=== PATIENT | female | born 1970 | race Caucasian/White ===

== ENCOUNTER 2017-12-18 05:56 | Day surgery (SDC) | END 2017-12-18 12:00 | disposition home or self-care (01) ==

== ENCOUNTER 2019-03-04 09:26 | Day surgery (SDC) | payer OTHER ==
[2019-03-03 18:33] VITALS: Ht 149.9 cm; Wt 77.3 kg
--- NOTE | 2019-03-03 23:36 | PREOPHP ---
DATE OF ADMISSION: 03/04/2019 HISTORY OF PRESENT ILLNESS: This 48-year-old patient is going to be admitted for diagnostic arthrosc opy of left knee, partial medial lateral meniscectomy, possible repair, synovectomy, application of J ones dressing. This patient has been experiencing knee pain for quite a while. Conservative treatment resulted in l imited benefit to the patient, and patient has requested surgical intervention. PAST MEDICAL HISTORY: Rheumatoid arthritis, Sjogren. SOCIAL HISTORY: Nonsmoker, nondrinker. FAMILY HISTORY: Positive for diabetes, hypertension, and hyperlipidemia. PAST SURGICAL HISTORY: Removal of cyst from the back. MEDICATIONS: 1. Folic acid. 2. Tramadol. 3. Hydroxychloroquine. 4. Vitamin D. 5. 100 mg a day. 6. Sulindac. 7. Folic acid. 8. D3. 9. For postop ibuprofen and Bactrim DS have been given. PHYSICAL EXAMINATION: SKIN: Within normal limits. EARS, NOSE, THROAT: PERRLA. HEAD AND NECK: Normocephalic. Trachea midline. Bilateral symmetrical carotid pulses. No mass, no bruit, no lymphadenopathy. CARDIOVASCULAR: Normal sinus rhythm. S1, S2 normal. No murmur. No peripheral edema. LUNGS: Clear. ABDOMEN: Protuberant. No organomegaly. No mass. Bowel sounds present. GENITOURINARY AND RECTAL: Not done, not pertinent to this admission. MUSCULOSKELETAL: Height 5 feet 1 inch, weighing 266 pounds. Head and neck unremarkable. Upper extr emities normal with normal muscular examination. Spine shows no fascial tenderness or facet tenderne ss. Bilateral knees: Right knee, status postoperative arthroscopy, well healed scar. Left knee: M inimal muscle atrophy. Range of motion symmetrical. There is tenderness over the medial and lateral tibiofemoral joint line. Positive patellofemoral test, patellar crepitation. No instability. Posi tive Meredith test. IMAGING: MRI of the left knee indicates tricompartment arthrosis tear of the medial meniscus, tear o f lateral meniscus, synovitis of the knee. DIAGNOSES 1. Torn medial meniscus. 2. Torn lateral meniscus. 3. Arthrosis. 4. Synovitis, left knee. Treatment plan, alternatives, risks and benefits discussed. She understands possible complications f rom surgery such as infection, bleeding, nerve damage, vascular damage, possibility of deep venous th rombosis, pulmonary embolism, hypersensitivity from medication, and even . [place] result may not be obtained depending on actual finding or unknown factor or factors. No guarantee is being made. Formal H and P supposed to be done by PCP. Dictated By: MONIQUE GONZALEZ/OBI Conf#: [id number] DID#: [id number]
[2019-03-04] VITALS (15 sets, daily range): BP systolic 97–154; BP diastolic 53–89; PULSE 74–108; RESP 11–22; BMI 34.4; BMI 52.0
[~2019-03-04] VITALS: Ht 149.9 cm; Wt 77.3 kg
[~2019-03-04 09:26] MED LIST: CEFAZOLIN 1 GM/50 ML (PMX) 50 ML IVPB SCH; EPINEPHrine 1 MG/ML 30 ML INJ INH SCH; FOLI-49 PO; HYDR200T5 PO; PILO7.5T2 PO; SULI150T PO; VIT B12 ORAL; VIT1TABL PO
[2019-03-04] MEDS ORDERED: CHOL100062 PO (10:19)
[2019-03-04] MEDS ORDERED: TRAM50TA2 PO (10:19)
[2019-03-04] MEDS ORDERED: ETAN50PE SQ (10:19)
--- NOTE | 2019-03-04 10:25 | PREAC ---
Date/Time of Note Date/Time of Note DATE: 03/04/19 TIME: 10:23 Anesthesia Eval and Record Evaluation Time Pre-Procedure Interview DATE: 03/04/19 TIME: 10:23 Age 48 Sex female NPO: 8 hrs Preoperative diagnosis LEFT KNEE ARTHROSCOPY Planned procedure LEFT KNEE ARTHROSCOPY Past Medical History Past Medical History: Includes Pulm: Sleep Apnea Musculoskeletal: Rheumatoid arthritis, Other (SJOGRENS DISEASE ) Surgery & Anesthesia Issues No known issue Meds Anticoagulation: No Beta Zeke within 24 hr: No Reason Beta Zeke not given: Pt. not on B-Zeke Reported Medications Cholecalciferol* (Vitamin D3*) 1,000 Unit Tablet, 2000 UNIT PO DAILY, TAB 03/04/19 Tramadol HCl (Tramadol HCl) 50 Mg Tablet, 50 MG PO BID, #60 TAB 03/04/19 Etanercept (Enbrel) 50 Mg/1 Ml Pen.injctr, 50 MG SQ WEEKLY for ON Saturday03/04/19 [place]ine Hcl* (Salagen*) 7.5 Mg Tablet, 7.5 MG PO TID, TAB 12/18/17 Hydroxychloroquine Sulfate* (Plaquenil*) 200 Mg Tab, 200 MG PO BID, TAB 12/18/17 Sulindac* (Sulindac*) 150 Mg Tablet, 75 MG PO BID, TAB 12/18/17 Discontinued Reported Medications [Vit B12] No Conflict Check, 500 MG ORAL DAILY 12/18/17 Vit B6/Mag Cit & Ox/Potass Cit (THERALITH XR TABLET) 1 Each Tablet.er, 1 EACH PO, TAB 12/18/17 Folic Acid* (Folic Acid*) 1 Mg Tablet, 1 MG PO DAILY, TAB 12/18/17 Current Medications Cefazolin Sodium 50 ml @ 100 mls/hr ONCE IVPB ; Start 03/04/19 at 07:30; Stop 03/04/19 at 18:00 Lactated Ringer's 1,000 ml @ 20 mls/hr Q24H IV ; Start 03/04/19 at 10:30 Meds reviewed: Yes Allergies Coded Allergies: naproxen (Verified Allergy, Severe, HIVES, 03/04/19) ibuprofen (Verified Allergy, Unknown, ITCHINESS, 03/04/19) acetaminophen (Verified Adverse Reaction, Unknown, 12/18/17) hydrocodone (Verified Adverse Reaction, Unknown, 12/18/17) Allergies Reviewed: Yes Labs/Studies Labs Reviewed: Reviewed by anesthesiologist test: Negative Pre-procedure Exam Last vitals Vital Signs Date Temp Pulse Resp B/P (MAP) Pulse Ox O2 O2 Flow FiO2 Time Delivery Rate 03/04/19 98.0 89 16 120/63 96 Room Air 10:14 (82) Airway: Adequate mouth opening, Adequate thyromental dist Mallampati: Mallampati I Teeth: Normal Lung: Normal Heart: Normal ASA Physical Status ASA physical status: 3 Emergency: None Pre-operative Attestations Prior to commencing anesthesia and surgery, the patient was re-evaluated, there was verification of: *The patient's identity *The results of appropriate recent lab work and preoperative vital signs *The above evaluation not changing prior to induction *Anesthetic plan, risk benefits, alternative and complications discussed with patient/family; questions answered; patient/family understands, accepts and wishes to proceed. LUANNE LEACH DO Mar 04, 2019 10:25
[2019-03-04] MEDS ORDERED: LACTATED RINGER'S 1,000 ML IV SCH (10:30)
[2019-03-04] MEDS ORDERED: morphine SULFATE/PF (10 MG/10 ML) INJ ONE ×2 (10:32→11:25)
[2019-03-04] MEDS ORDERED: PROPOFOL 20 ML ONE (10:40)
[2019-03-04] MEDS ORDERED: LIDOCAINE 1% (MDV) 20 ML INJ ONE (10:40)
[2019-03-04] MEDS ORDERED: SUCCINYLCHOLINE CHLORIDE 100 MG/5 ML SYG IV ONE (10:40)
[2019-03-04] MEDS ORDERED: ROPIVACAINE 0.5 % 30 ML VIAL ONE (10:42)
[2019-03-04] MEDS ORDERED: CEFAZOLIN 1 GM INJ ONE (10:45)
[2019-03-04] MEDS ORDERED: ONDANSETRON 4 MG INJ ONE (10:45)
[2019-03-04] MEDS ORDERED: EPINEPHrine 1 MG/ML 30 ML INJ IRR ONE (11:35)
--- NOTE | 2019-03-04 12:09 | SIPON ---
Date/Time of Note Date/Time of Note DATE: 03/04/19 TIME: 12:05 Operative Report Preoperative Diagnosis Left knee chronic synovitis, torn medial and lateral meniscus Postoperative Diagnosis The same Operation/Procedure Performed Diagnostic scope, partial medial, lateral meniscectomy, and total synovectomy application of Reagan dressing Surgeon Monique mascorro MD educational assistant second Scrub Anesthesia: general Estimated blood loss: minimal Transfusion Required none Specimen none Grafts/Implants none Complications none MONIQUE MASCORRO MD Mar 04, 2019 12:09
[2019-03-04] MEDS ORDERED: HYDROmorphONE 1 MG/5 ML IV SYRINGE IV ONE (12:18)
[2019-03-04] MEDS ORDERED: HYDROmorphONE 1 MG/5 ML IV SYRINGE IV PRN ×3 (12:30)
--- NOTE | 2019-03-04 12:55 | PAC ---
Date/Time of Note Date/Time of Note DATE: 03/04/19 TIME: 12:55 Post-Anesthesia Notes Post-Anesthesia Note Last documented vital signs Vital Signs Date Temp Pulse Resp B/P (MAP) Pulse Ox O2 O2 Flow FiO2 Time Delivery Rate 03/04/19 98.0 89 16 120/63 96 Room Air 10:14 (82) Activity: WNL Respiratory function: WNL Cardiovascular function: WNL Mental status: Baseline Pain reasonably controlled: Yes Hydration appropriate: Yes Nausea/Vomiting absent: Yes LUANNE LEACH DO Mar 04, 2019 12:55
--- NOTE | 2019-03-04 12:57 | OPR ---
DATE OF OPERATION: 03/04/2019 PREOPERATIVE DIAGNOSIS: Torn medial meniscus, torn lateral meniscus, chronic synovitis, left knee. POSTOPERATIVE DIAGNOSES: Torn medial meniscus, torn lateral meniscus, chronic synovitis, left knee. OPERATION PERFORMED: Diagnostic arthroscopy, partial medial meniscectomy, partial lateral meniscecto my, total synovectomy, application of Reagan dressing. ANESTHESIA: General with a block. BLEEDING: Minimal. COMPLICATIONS: None. DESCRIPTION OF PROCEDURE: Patient was transferred to the operating room and placed on the table in t he supine position. General anesthesia was induced and tunnel block was given. General anesthe joaquin was induced. Then, the left lower extremity was prepped and draped in the routine fashion. Land murphy were marked through 2 regular anterior portals, 1 medial and 1 lateral to patellar tendon. Op erative arthroscopy was commenced. Examination of the suprapatellar pouch indicated chronic synoviti s with a 3/4 blockage of the suprapatellar pouch with a thick fibrous band plus synovitis. Therefore , total synovectomy with Arthrocare Bovie was performed in the suprapatellar pouch and medial and lat eral gutter. Medial lateral gutter was clear of loose body. 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 Going to medial compartment, there was a 55% grade IV chondromalacia of the medial half of the medial compartment and there was chronic synovitis with a complex tear posteriorly, flap tear in the middle third and anterior third. Therefore, total synovectomy was performed in the medial compartment. Partial medial meniscectomy to stable margin we re done. The intercondylar notch indicated chronic synovitis which was again coagulated by Arthrocar e Bovie. Going to lateral compartment, articular surface indicated grade II minimally grade III clara dromalacia on the femoral side. Chronic synovitis and some discoid meniscus was found that shows a f lap tear on the medial margin. Therefore, total synovectomy lateral compartment was done. A partial lateral meniscectomy to stable margin was performed. With further synovectomy in the inferior pole of the patella, lateral gutter. Knee was evacuated from debris with copious amount of saline irrigat ion and hemostasis obtained with the help of Arthrocare Bovie during the procedure. Portal was close d with benzoin and Steri-Strips, 10 mg Duramorph mixed with 10 mL of injectable saline was injected i nto the knee. A sterile Reagan dressing was applied. Procedure was terminated. General anesthesia w as stopped. Patient was taken to recovery room in good and stable condition. Dictated By: MONIQUE GONZALEZ/OBI Conf#: [id number] DID#: [id number]
== END 2019-03-04 14:00 | disposition home or self-care (01) ==
LOC: SDS 09:26
PROVIDERS: ATTEND Internal Medicine Endocrinology, Diabetes & Metabolism
DX: S83.232D Complex tear of medial meniscus, current injury, left knee, subsequent encounter (principal); S83.282D Other tear of lateral meniscus, current injury, left knee, subsequent encounter; X58.XXXD Exposure to other specified factors, subsequent encounter; M94.262 Chondromalacia, left knee; M65.862 Other synovitis and tenosynovitis, left lower leg
CPT/HCPCS: 29880; 84703; C1713; J0171; J0690; J1170; J2274; J2405; J2795; J3010; Z7512; Z7610